=== PATIENT | male | born 1995 | race African-American/Black ===

== ENCOUNTER 2017-07-08 12:13 | Emergency (ER) | payer SELFPAY ==
--- NOTE | 2017-07-08 12:24 | EDM.PDOC ---
ED HPI GENERAL MEDICAL PROBLEM - General Stated Complaint: STD CHECK Time Seen by Provider: 07/08/17 12:23 Source of Information: Reports: Patient - History of Present Illness INITIAL COMMENTS - FREE TEXT/NARRATIVE: HISTORY AND PHYSICAL: History of present illness: [ Patient presents with a chief complaint of Chlamydia exposure, his girlfriend was treated recently with positive on file he presents for essentially treatment and testing Secondary complaint of right hand pain specifically over the fifth PIP as he punched a refrigerator one month prior 4 out of 10 pain concerning the hand no open lesion redness warmth or exudate for culture No fever nausea vomiting chills sweats no chest pain shortness breath headache dizziness or palpitation no bowel or urine symptoms ] Review of systems: As per history of present illness and below otherwise all systems reviewed and negative. Past medical history: As per history of present illness and as reviewed below otherwise noncontributory. Surgical history: As per history of present illness and as reviewed below otherwise noncontributory. Social history: No reported history of drug or alcohol abuse. Family history: As per history of present illness and as reviewed below otherwise noncontributory. Physical exam: HEENT: Atraumatic, normocephalic, pupils reactive, negative for conjunctival pallor or scleral icterus, mucous membranes moist, throat clear, neck supple, nontender, trachea midline. Lungs: Clear to auscultation, breath sounds equal bilaterally, chest nontender. Heart: S1S2, regular, negative for clicks, rubs, or JVD. Abdomen: Soft, nondistended, nontender. Negative for masses or hepatosplenomegaly. Negative for costovertebral tenderness. Pelvis: Stable nontender. Genitourinary: Deferred. Rectal: Deferred. Extremities: Atraumatic, negative for cords or calf pain. Neurovascular unremarkable. Neuro: Awake, alert, oriented. Cranial nerves II through XII unremarkable. Cerebellum unremarkable. Motor and sensory unremarkable throughout. Exam nonfocal. Right hand unaffected above the wrist entirely neurovascularly intact mildly tender over the fifth PIP no redness warmth swelling or open lesion Diagnostics: [Right hand 3 views GC Chlamydia ] Therapeutics: [Rocephin 250 mg IM Azithromycin 1000 mg by mouth Impression: [Chlamydia exposure] Right hand pain Definitive disposition and diagnosis as appropriate pending reevaluation and review of above. - Related Data Allergies Allergy/AdvReac Type Severity Reaction Status Date / Time tonia Allergy Rash Uncoded 07/08/17 12:28 Home Meds: Home Meds . [No Known Home Meds] 07/08/17 [History] ED ROS GENERAL - Review of Systems Review Of Systems: ROS reveals no pertinent complaints other than HPI. ED EXAM, GENERAL - Physical Exam Exam: See Below Course - Vital Signs Last Recorded V/S: Last Vital Signs Temp 97.9 F 07/08/17 12:24 Pulse 98 07/08/17 12:24 Resp 16 07/08/17 12:24 BP 129/74 07/08/17 12:24 Pulse Ox 100 07/08/17 12:24 - Orders/Labs/Meds Orders: Active Orders 24 hr Category Date Time Status Hand Comp Min 3V Rt [CR] Stat Exams 07/08/17 12:42 Taken CHLAMYDIA AND GONORRHEA BY [facility] Stat Lab 07/08/17 12:23 Ordered UA W/MICROSCOPIC [URIN] Stat Lab 07/08/17 12:53 Results Labs: Laboratory Tests 07/08/17 Range/Units 12:53 Urine Color YELLOW Urine Appearance CLEAR Urine pH 6.0 (5.0-8.0) Ur Specific Thompson 1.010 (1.001-1.035) Urine Protein NEGATIVE (NEGATIVE) mg/dL Urine Glucose (UA) NEGATIVE (NEGATIVE) mg/dL Urine Ketones NEGATIVE (NEGATIVE) mg/dL Urine Occult Blood NEGATIVE (NEGATIVE) Urine Nitrite NEGATIVE (NEGATIVE) Urine Bilirubin NEGATIVE (NEGATIVE) Urine Urobilinogen 0.2 (<2.0) EU/dL Ur Leukocyte Esterase NEGATIVE (NEGATIVE) Meds: Medications Discontinued Medications Generic Name Dose Route Start Last Admin Trade Name Matthew PRN Reason Stop Dose Admin Azithromycin 1,000 mg 07/08/17 12:44 07/08/17 12:56 Zithromax PO 07/08/17 12:45 1,000 mg NOW STA Administration Ceftriaxone Sodium 250 mg/ 1 mls @ 1 mls/sec 07/08/17 12:44 07/08/17 12:57 Lidocaine HCl IM 07/08/17 12:45 1 mls/sec ONETIME ONE Administration Departure - Departure Time of Disposition: 13:23 Disposition: Home, Self-Care 01 Condition: Good Clinical Impression: Encounter for medical screening examination, Right hand pain Clinical Impression: (Ruled Out): STI (sexually transmitted infection) - Discharge Information Referrals: PCP,None [Primary Care Provider] - Additional Instructions: The following information is given to patients seen in the emergency department who are being discharged to home. This information is to outline your options for follow-up care. We provide all patients seen in our emergency department with a follow-up referral. The need for follow-up, as well as the timing and circumstances, are variable depending upon the specifics of your emergency department visit. If you don't have a primary care physician on staff, we will provide you with a referral. We always advise you to contact your personal physician following an emergency department visit to inform them of the circumstance of the visit and for follow-up with them and/or the need for any referrals to a consulting specialist. The emergency department will also refer you to a specialist when appropriate. This referral assures that you have the opportunity for follow-up care with a specialist. All of these measure are taken in an effort to provide you with optimal care, which includes your follow-up. Under all circumstances we always encourage you to contact your private physician who remains a resource for coordinating your care. When calling for follow-up care, please make the office aware that this follow-up is from your recent emergency room visit. If for any reason you are refused follow-up, please contact the [facility] emergency department at and asked to speak to the emergency department charge nurse. - My Orders Last 24 Hours: My Active Orders 07/08/17 12:23 CHLAMYDIA AND GONORRHEA BY [facility] Stat 07/08/17 12:42 Hand Comp Min 3V Rt [CR] Stat 07/08/17 12:53 UA W/MICROSCOPIC [URIN] Stat - Assessment/Plan Last 24 Hours: My Active Orders 07/08/17 12:23 CHLAMYDIA AND GONORRHEA BY [facility] Stat 07/08/17 12:42 Hand Comp Min 3V Rt [CR] Stat 07/08/17 12:53 UA W/MICROSCOPIC [URIN] Stat
[2017-07-08] MEDS ORDERED: Azithromycin 250 MG Tab PO STA (12:44)
[2017-07-08] MEDS ORDERED: cefTRIAXone 250 MG in Lidocaine 1% 1 ML IM ONE (12:44)
--- NOTE | 2017-07-08 14:15 | CR ---
EXAMINATION: Right hand HISTORY: Pain COMPARISON: None TECHNIQUE: 3 views FINDINGS/IMPRESSION: There is no acute osseous abnormality, dislocation, or fracture. Mineralization and joint spaces are preserved.
== END 2017-07-08 13:40 | disposition home or self-care (01) ==
LOC: MW.ED 12:13
DX: M79.641 Pain in right hand (principal); Z20.2 Contact with and (suspected) exposure to infections with a predominantly sexual mode of transmission; Z91.013 Allergy to seafood
CPT/HCPCS: 73130; 81001; 87491; 87591; 96372; 99283; A9270; J0696; J2001